=== PATIENT | male | born 1960 | race Two or more races ===

== ENCOUNTER 2017-06-12 15:16 | Emergency (ER) | payer BC ==
[2017-06-12] MEDS ORDERED: NITROGLYCERIN (SL) 0.4 MG TAB SL ×2 (16:30→18:30)
[2017-06-12 16:52] LABS: ADD MAN DIFF? NO
[2017-06-12 16:53] LABS: BASOPHILS % 0.2 % (0.0-2.0); EOSINOPHILS # 0.2 10^3/ul (0.0-0.5); EOSINOPHILS % 1.7 % (0.0-7.0); HEMATOCRIT 45.6 % (42.0-52.0); HEMOGLOBIN 15.7 g/dl (14.0-18.0); LYMPHOCYTES # 3.6 10^3/ul (0.8-2.9); LYMPHOCYTES % 28.3 % (15.0-51.0); MEAN CORPUSCULAR HEMOGLOBIN 30.5 pg (29.0-33.0); MEAN CORPUSCULAR HGB CONC 34.4 g/dl (32.0-37.0); MEAN CORPUSCULAR VOLUME 88.7 fl (82.0-101.0); MEAN PLATELET VOLUME 9.9 fl (7.4-10.4); MONOCYTE # 0.9 10^3/ul (0.3-0.9); MONOCYTES % 7.1 % (0.0-11.0); NEUTROPHIL # 7.9 10^3/ul (1.6-7.5); NEUTROPHILS % 62.5 % (39.0-77.0); PLATELET COUNT 329 10^3/UL (140-415); RED BLOOD COUNT 5.14 10^6/ul (4.70-6.10); RED CELL DISTRIBUTION WIDTH 12.4 % (11.5-14.5)
[2017-06-12 16:53] LABS: WHITE BLOOD COUNT 12.7 10^3/ul (4.8-10.8)
[2017-06-12] MEDS: ONDANSETRON 4 MG INJ IV (17:12)
[2017-06-12] MEDS: morphine 4 MG/ML VIAL IV (17:12)
[2017-06-12] MEDS: NITROGLYCERIN 2% 1 GM OINT PKT TD (17:13)
[2017-06-12] MEDS: ASPIRIN 81 MG TAB PO (17:13)
[2017-06-12 17:14] LABS: ANION GAP 16 (8-16); BLOOD UREA NITROGEN 13 mg/dl (7-20); CALCIUM 9.8 mg/dl (8.4-10.2); CARBON DIOXIDE 23 mmol/L (21-31); CHLORIDE 105 mmol/L (97-110); CREATININE 0.67 mg/dl (0.61-1.24); GLUCOSE 105 mg/dl (70-220); POTASSIUM 3.7 mmol/L (3.5-5.1); SODIUM 140 mmol/L (135-144)
[2017-06-12 17:26] LABS: TROPONIN-I < 0.012 ng/ml (0.00-0.12)
[2017-06-12] MEDS: SOD CHLORIDE 0.45% 1,000 ML IV (18:19)
[2017-06-12] MEDS ORDERED: HYDROCODONE/APAP (5/325) TAB PO (18:30)
[2017-06-12] MEDS ORDERED: ONDANSETRON 4 MG INJ IV (18:30)
[2017-06-12] MEDS ORDERED: MAGNESIUM HYDROXIDE 30ML CUP PO (18:30)
[2017-06-12] MEDS ORDERED: LORAZEPAM 2 MG INJ IV (18:30)
[2017-06-12] MEDS ORDERED: NA PHOSPHATE/BIPHOS 133 ML ENEMA PR (18:30)
[2017-06-12] MEDS ORDERED: NACL 0.9% 3 ML SYG IV (18:30)
[2017-06-12] MEDS ORDERED: ALBUTEROL/IPRATROPIUM (NEB) 3 ML AMP HHN (18:30)
[2017-06-12] MEDS ORDERED: ACETAMINOPHEN 325 MG TAB PO (18:30)
[2017-06-12] MEDS ORDERED: hydrALAzine 20 MG INJ IV (18:30)
[2017-06-12] MEDS ORDERED: DOCUSATE SODIUM 100 MG CAP PO (18:30)
[2017-06-12 20:02] LABS: CREATINE KINASE 50 IU/L (23-200)
[2017-06-12 20:14] LABS: FREE T4 (FREE THYROXINE) 1.01 ng/dl (0.64-1.79)
[2017-06-12 20:15] LABS: CK INDEX 0.6; CK-MB 0.31 ng/ml (0.0-2.4); TROPONIN-I < 0.012 ng/ml (0.00-0.12)
[2017-06-12] MEDS: NICOTINE (21 MG/24 HR) PATCH TRANSDERM (20:24)
[2017-06-12] MEDS ORDERED: DEXTROSE 50% 50 ML SYRINGE IV ×2 (20:30)
[2017-06-12] MEDS ORDERED: GLUCOSE GEL 15 GRAM TUBE BUCCAL (20:30)
[2017-06-12] MEDS ORDERED: GLUCOSE GEL 15 GRAM TUBE PO ×2 (20:30)
[2017-06-12] MEDS ORDERED: GLUCAGON 1 MG INJ IM (20:30)
[2017-06-12] MEDS ORDERED: INSULIN ASPART [NOVOLOG] 3 ML PEN SC (21:00)
[2017-06-12] MEDS: INSULIN ASPART [NOVOLOG] 3 ML PEN SC (21:00)
[2017-06-12] MEDS: HEPARIN 5,000 UNIT/0.5 ML VIAL SC (21:17)
[2017-06-12] MEDS: ACETAMINOPHEN 325 MG TAB PO (21:22)
[2017-06-12 23:39] LABS: CREATINE KINASE 48 IU/L (23-200)
[2017-06-12 23:49] LABS: CK INDEX 0.6
[2017-06-12 23:51] LABS: CK-MB 0.31 ng/ml (0.0-2.4); TROPONIN-I < 0.012 ng/ml (0.00-0.12)
[2017-06-13] MEDS: ONDANSETRON 4 MG INJ IV (01:00)
[2017-06-13] MEDS: morphine 2 MG INJ IV (01:00)
[2017-06-13] MEDS ORDERED: ACCU-CHEK XX (02:00)
[2017-06-13] MEDS: ACCU-CHEK XX (02:00)
[2017-06-13] MEDS: PANTOPRAZOLE (EC) 40 MG TAB PO (05:53)
[2017-06-13] MEDS: SOD CHLORIDE 0.45% 1,000 ML IV (06:21)
[2017-06-13 06:36] LABS: ADD MAN DIFF? NO
[2017-06-13 06:39] LABS: WHITE BLOOD COUNT 9.3 10^3/ul (4.8-10.8)
[2017-06-13 06:39] LABS: BASOPHILS % 0.4 % (0.0-2.0); EOSINOPHILS # 0.3 10^3/ul (0.0-0.5); EOSINOPHILS % 2.9 % (0.0-7.0); HEMATOCRIT 42.2 % (42.0-52.0); HEMOGLOBIN 14.4 g/dl (14.0-18.0); LYMPHOCYTES # 4.9 10^3/ul (0.8-2.9); LYMPHOCYTES % 52.7 % (15.0-51.0); MEAN CORPUSCULAR HEMOGLOBIN 30.8 pg (29.0-33.0); MEAN CORPUSCULAR HGB CONC 34.1 g/dl (32.0-37.0); MEAN CORPUSCULAR VOLUME 90.2 fl (82.0-101.0); MEAN PLATELET VOLUME 9.7 fl (7.4-10.4); MONOCYTE # 0.7 10^3/ul (0.3-0.9); MONOCYTES % 7.2 % (0.0-11.0); NEUTROPHIL # 3.4 10^3/ul (1.6-7.5); NEUTROPHILS % 36.5 % (39.0-77.0); PLATELET COUNT 316 10^3/UL (140-415); RED BLOOD COUNT 4.68 10^6/ul (4.70-6.10); RED CELL DISTRIBUTION WIDTH 12.7 % (11.5-14.5)
[2017-06-13 07:00] LABS: ANION GAP 16 (8-16); BLOOD UREA NITROGEN 13 mg/dl (7-20); CALCIUM 9.3 mg/dl (8.4-10.2); CARBON DIOXIDE 26 mmol/L (21-31); CHLORIDE 105 mmol/L (97-110); CREATINE KINASE 44 IU/L (23-200); CREATININE 0.71 mg/dl (0.61-1.24); GLUCOSE 122 mg/dl (70-220); MAGNESIUM 1.9 mg/dl (1.7-2.5); PHOSPHORUS 4.4 mg/dl (2.5-4.9); POTASSIUM 3.8 mmol/L (3.5-5.1); SODIUM 143 mmol/L (135-144)
[2017-06-13 07:03] LABS: CHOL/HDL RATIO 7.3 RATIO; HDL CHOLESTEROL 31 mg/dl (28-71); LDL CHOLESTEROL,CALCULATED 146 mg/dl; TRIGLYCERIDES 248 mg/dl (0-149)
[2017-06-13 07:03] LABS: CHOLESTEROL 227 mg/dl (100-200)
[2017-06-13 07:10] LABS: CK INDEX 0.6
[2017-06-13 07:10] LABS: HEMOGLOBIN A1C 6.2 % (0-5.9)
[2017-06-13 07:11] LABS: CK-MB 0.28 ng/ml (0.0-2.4); TROPONIN-I < 0.012 ng/ml (0.00-0.12)
[2017-06-13] MEDS: ASPIRIN (EC) 325 MG TAB PO (09:55)
[2017-06-13] MEDS: HEPARIN 5,000 UNIT/0.5 ML VIAL SC (09:56)
[2017-06-13 11:19] LABS: CREATINE KINASE 47 IU/L (23-200)
[2017-06-13 11:32] LABS: CK INDEX 0.6
[2017-06-13 11:42] LABS: CK-MB 0.27 ng/ml (0.0-2.4); TROPONIN-I < 0.012 ng/ml (0.00-0.12)
== END 2017-06-13 12:12 | disposition admitted as inpatient to this hospital (09) ==
LOC: E/R 06-13 12:12
DX: R07.9 Chest pain, unspecified (principal); R51 Headache; I10 Essential (primary) hypertension; E11.9 Type 2 diabetes mellitus without complications
CPT/HCPCS: 36415; 70450; 71045; 80048; 80061; 82550; 82553; 82962; 83036; 83735; 84100; 84439; 84443; 84484; 85025; 93005; 93306; 96372; 96374; 96375; 96376; 99285-25